=== PATIENT | male | born 1980 | race Caucasian/White ===

== ENCOUNTER → 2017-06-26 | Outpatient (CLI) | payer OTHER ==
--- NOTE | 2017-06-26 15:29 | REP ---
Clinical: Bilateral shoulder pain . Technique: Internal rotation, external rotation, and Y view of the right and left shoulder. Findings: No acute fracture or dislocation. The acromioclavicular and glenohumeral joints are intact. No periarticular calcifications or degenerative changes are appreciated. Sub acromial spaces are normal. Surrounding soft tissues are unremarkable bilaterally. Impression: Normal bilateral shoulder radiographs. Signed by Didier Vargas MD 06/26/2017 03:21 P
--- NOTE | 2017-06-26 15:31 | REP ---
Clinical: Bilateral ankle pain. Technique: AP, lateral, bilateral oblique views of the right and left ankle. Findings: No acute fracture or dislocation. Skeletal structures and joint spaces are intact and normal bilaterally. Right and left ankle mortise appear stable. No subcutaneous emphysema or radiodense foreign body. Impression: Normal bilateral age appropriate symmetric ankle radiograph series. Signed by Didier Vargas MD 06/26/2017 03:23 P
== END ==
LOC: M RAD 14:23
PROVIDERS: ATTEND Family Medicine Addiction Medicine
DX: M25.511 Pain in right shoulder (principal); M25.579 Pain in unspecified ankle and joints of unspecified foot